=== PATIENT | male | born 1935 | race Caucasian/White ===

== ENCOUNTER 2017-12-05 11:42 | Observation (INO) ==
[2017-12-05 12:35] LABS: Basophils % 0.4 %; Eosinophils # 0.1 K/mcL (0.0-0.6); Eosinophils % 0.8 %; Hematocrit 45.1 % (37.5-50.1); Immature Granulocytes % 0.4 % (0-4); Lymphocytes # 1.1 K/mcL (0.6-4.6); Mean Corpuscular Hemoglobin 29.1 pg (28.0-33.3); Mean Corpuscular Volume 93.8 fL (83.0-100.0); Mean Platelet Volume 10.6 fL (9.4-12.4); Monocytes # 0.8 K/mcL (0.0-1.3); Monocytes % 8.5 %; Neutrophils # 7.1 K/mcL (1.6-8.9); Platelet Count 168 K/mcL (140-400); Red Blood Count 4.81 M/mcL (4.19-5.50); Red Cell Distribution Width 15.5 % (11.5-14.5); Segmented Neutrophils % 77.9 %
[2017-12-05 12:52] LABS: Prothrombin Time 11.8 Seconds (9.4-12.1)
[2017-12-05 12:55] LABS: Activated Partial Thrombo Time 28.3 Seconds (26.0-36.0)
[2017-12-05 12:57] LABS: BUN/Creatinine Ratio 16 (6-26); Blood Urea Nitrogen 20 mg/dL (8-23); Calcium 8.3 mg/dL (8.6-10.3); Carbon Dioxide 31 mEq/L (23-29); Chloride 109 mEq/L (98-107); Glucose 101 mg/dL (70-105); Osmolality,Calculated 303 (280-300); Potassium 3.6 mEq/L (3.5-5.1); Sodium 145 mEq/L (136-145); eGFR For Non-African Americans 56 (> 60)
[2017-12-05 12:59] LABS: Troponin I 0.06 ng/mL (< 0.04)
[2017-12-05] MEDS ORDERED: Furosemide 40 MG/4 ML VIAL IVP ONE (13:18)
--- NOTE | 2017-12-05 13:27 | Emergency Department Note ---
Disposition Clinical Impression: Peripheral edema, Orthopnea, Shortness of breath, Atrial fibrillation Disposition: Admitted As Inpatient Condition: Fair Referrals: Howard Nuno DO [Primary Care Provider] - Forms: ED Satisfaction Letter Time of Disposition: 13:49 General Adult HPI - General Chief complaint: ED Arrhythmia/Palpitations Stated complaint: Retaining Fluids From [facility] Time Seen by Provider: 12/05/17 11:50 Source: patient Mode of arrival: ambulatory Limitations: no limitations Nursing Notes Reviewed: Yes Vital Signs Reviewed: Yes - History of Present Illness HPI Narrative: Patient presents emergency room at the request of his primary care provider for evaluation of shortness of breath and increased leg swelling and atrial fibrillation. Patient is also had urinary related issues with inability to control his urination. Family is with him and denies any falls trauma or injury. Patient has progressively been getting worse over the last several weeks. Denies any other complaints or symptoms at this time. Onset (ago): day(s) Location: lower extremity Radiation: non-radiation Pain Severity: mild Pain Scale: 0 Consistency: constant Improves with: rest Worsens with: movement Associated symptoms: Reports: denies other symptoms Treatments Prior to Arrival: none - Related Data Home Medications Medication Instructions Recorded Confirmed Amiodarone [Cordarone] 200 mg PO DAILY 07/01/15 12/05/17 Terazosin [Hytrin] 5 mg PO DAILY 11/25/17 12/05/17 Aspirin Enteric Coated [Aspirin EC] 81 mg PO DAILY 12/05/17 12/05/17 Atorvastatin [Lipitor] 40 mg PO HS 12/05/17 12/05/17 Metoprolol Succinate [Toprol Xl] 50 mg PO DAILY 12/05/17 12/05/17 Nitroglycerin [Nitrostat] 1 tab PO Q5MIN PRN 12/05/17 12/05/17 Allergies Allergy/AdvReac Type Severity Reaction Status Date / Time No Known Allergies Allergy Verified 07/26/17 12:16 All systems ED: reviewed and negative except as stated. Review of Systems: As Per HPI Constitutional: Reports: weakness, weight change. Denies: fever, chills ENT ED: Denies: ear pain, throat pain Cardiovascular: Reports: dyspnea on exertion, orthopnea, edema. Denies: chest pain, palpitations Respiratory: Reports: dyspnea. Denies: cough, wheezes Gastrointestinal: Denies: abdominal pain, nausea, vomiting, diarrhea Genitourinary: Denies: urgency, dysuria, frequency Musculoskeletal: Denies: back pain, neck pain Neurological: Denies: headache Past Medical History - Past Medical History Attestation: Yes The following information was validated with the patient. Source: patient Medical history: Reports: coronary artery disease, hyperlipidemia, hypertension Psychiatric history: Reports: no psych history - Social History Smoking Status: Never smoker Smokeless Tobacco Status: No Alcohol use: Reports: none Drug use: Reports: none Physical Exam - General Limitations: no limitations General appearance: alert, in no apparent distress - Head Head exam: atraumatic, normocephalic, normal inspection - ENT ENT exam: normal exam, normal oropharynx, mucous membranes moist - Neck Neck exam: Present: normal inspection, full ROM, trachea midline. Absent: tenderness - Chest Chest inspection: Present: normal inspection, symmetric chest wall rise. Absent : tenderness - Respiratory Respiratory exam: Present: normal lung sounds bilaterally - Cardiovascular Cardiovascular exam: Present: regular rate, normal rhythm, normal heart sounds - Abdominal Exam Abdominal exam: Present: soft, Non-Tender, normal bowel sounds. Absent: tenderness, distention, guarding, rebound, rigidity - Extremities Exam Extremities exam: Present: normal inspection, full ROM, normal capillary refill , pedal edema. Absent: tenderness - Back Exam Back exam: Present: normal inspection, full ROM. Absent: tenderness, CVA tenderness (R), CVA tenderness (L) - Neurological Exam Neurological exam: Present: alert, oriented X3, CN II-XII intact, normal gait - Skin Skin exam: Present: warm, dry, intact, normal color Course Course Narrative: Patient seen and examined the time of arrival. See history of present illness. 82-year-old male presents emergency room at the request of his primary care provider Dr. Nuno. Patient was seen there today and had an evaluation completed with concern for shortness of breath, leg swelling, new onset A. fib and urinary incontinence. He is concerned about fluid overload and heart failure. Patient did have a 5 vessel bypass 17 years ago with no complications since then. He is currently denying chest pain fevers chills nausea vomiting or diarrhea. No headache or vision change. He does have some overflow incontinence of his urine but otherwise denies any burning with urination. Patient only has exertional dyspnea and wall resting in the bed in during conversation he does not appear to be in any apparent distress with no acute signs of shortness of breath. On physical exam his mucous membranes are moist his oropharynx is patent trachea is midline. Lungs are clear with no crackles. Heart is regular but has a normal rate. Abdomen is soft nontender nondistended with no guarding no rigidity and no peritoneal symptoms. There is no pulsatile masses or lesions noted. Patient deferred genitourinary examination initially. Bilateral lower extremities have significant pitting edema. Right lower extremity is larger than the left but this is a chronic issue secondary to the venous stripping is completed for his cardiac catheterization and bypass procedure. Patient will have detailed workup with CBC chemistry troponin and BNP urinalysis and chest x-ray to be completed here. Disposition will most likely be admission wants a full workup and treatment course have been established. We will continue to monitor here until symptomatically control is completed. Patient takes a baby aspirin daily. No other acute issues noted this time. - Reevaluation(s) Reevaluation #1: BNP is slightly elevated from baseline. His troponin is slightly elevated as well but no other acute etiology is noted. Chest x-ray still pending. EKG does not show any acute issues at this time. Patient does have atrial fibrillation but no acute signs of ST segment elevation or abnormality. Patient does have a remote history of atrial fibrillation that was spontaneously cardioverted with electrical stimulation. He has not had any issues with it since then. Single dose of IV Lasix to be provided here for diuresis and then reevaluation to be completed. Time: 13:47 Reevaluation #2: Patient is otherwise asymptomatic. He will be admitted for continuation of care what appears to be fluid overload orthopnea and exertional dyspnea. Hospitalist has been paged at this time. Lasix has been provided. Hospitalist Dr. Field was contacted no other recommendations or concerns were noted. Patient will be admitted for continuation of care and further evaluation for atrial fibrillation, generalized weakness,.. Time: 14:27 Vital Signs Temperature 98.7 F 12/05/17 11:49 Pulse Rate 93 12/05/17 11:49 Respiratory Rate 19 12/05/17 11:49 Blood Pressure 109/77 12/05/17 11:49 O2 Sat by Pulse Oximetry 95 12/05/17 11:49 Temperature 98.7 F 12/05/17 11:49 Pulse Rate 85 12/05/17 14:40 Respiratory Rate 18 12/05/17 14:40 Blood Pressure 128/89 12/05/17 14:40 O2 Sat by Pulse Oximetry 98 12/05/17 14:40 Oxygen Delivery Oxygen Delivery Room Air Medical Decision Making - MDM Narrative Medical decision making narrative: Exertional dyspnea, pitting edema, fluid overload - Medical Records Medical records reviewed: Yes I reviewed the patient's medical records. - Lab Data Lab results reviewed: Yes I reviewed the patient's lab results. Result diagrams: 12/05/17 12:22 12/05/17 12:22 Lab Results 12/05/17 12/05/17 12/05/17 Range/Units 12:22 12:22 12:22 WBC 9.1 (4.3-11.1) K/mcL RBC 4.81 (4.19-5.50) M/mcL Hgb 14.0 (12.9-16.9) g/dL Hct 45.1 (37.5-50.1) % MCV 93.8 (83.0-100.0) fL MCH 29.1 (28.0-33.3) pg MCHC 31.0 L (31.6-35.5) g/dL RDW 15.5 H (11.5-14.5) % Plt Count 168 (140-400) K/mcL MPV 10.6 (9.4-12.4) fL Immature Gran % 0.4 (0-4) % Seg Neutrophils % 77.9 % Lymphocytes % 12.0 % Monocytes % 8.5 % Eosinophils % 0.8 % Basophils % 0.4 % Neutrophils # 7.1 (1.6-8.9) K/mcL Lymphocytes # 1.1 (0.6-4.6) K/mcL Monocytes # 0.8 (0.0-1.3) K/mcL Eosinophils # 0.1 (0.0-0.6) K/mcL Basophils # 0.0 (0.0-0.2) K/mcL PT (9.4-12.1) Seconds INR APTT (26.0-36.0) Seconds Sodium 145 (136-145) mEq/L Potassium 3.6 (3.5-5.1) mEq/L Chloride 109 H (98-107) mEq/L Carbon Dioxide 31 H (23-29) mEq/L BUN 20 (8-23) mg/dL Creatinine 1.24 (0.70-1.30) mg/dL Est GFR ( Amer) > 60 (> 60) Est GFR (Non-Af Amer) 56 L (> 60) BUN/Creatinine Ratio 16 (6-26) Glucose 101 (70-105) mg/dL Calculated Osmolality 303 H (280-300) Lactic Acid 1.4 (0.5-2.2) mmol/L Calcium 8.3 L (8.6-10.3) mg/dL Troponin I 0.06 H* (< 0.04) ng/mL B-Natriuretic Peptide (Less than 100) pg/mL TSH 1.837 (0.340-5.600) mcIU/mL 12/05/17 12/05/17 Range/Units 12:22 12:22 WBC (4.3-11.1) K/mcL RBC (4.19-5.50) M/mcL Hgb (12.9-16.9) g/dL Hct (37.5-50.1) % MCV (83.0-100.0) fL MCH (28.0-33.3) pg MCHC (31.6-35.5) g/dL RDW (11.5-14.5) % Plt Count (140-400) K/mcL MPV (9.4-12.4) fL Immature Gran % (0-4) % Seg Neutrophils % % Lymphocytes % % Monocytes % % Eosinophils % % Basophils % % Neutrophils # (1.6-8.9) K/mcL Lymphocytes # (0.6-4.6) K/mcL Monocytes # (0.0-1.3) K/mcL Eosinophils # (0.0-0.6) K/mcL Basophils # (0.0-0.2) K/mcL PT 11.8 (9.4-12.1) Seconds INR 1.0 APTT 28.3 (26.0-36.0) Seconds Sodium (136-145) mEq/L Potassium (3.5-5.1) mEq/L Chloride (98-107) mEq/L Carbon Dioxide (23-29) mEq/L BUN (8-23) mg/dL Creatinine (0.70-1.30) mg/dL Est GFR ( Amer) (> 60) Est GFR (Non-Af Amer) (> 60) BUN/Creatinine Ratio (6-26) Glucose (70-105) mg/dL Calculated Osmolality (280-300) Lactic Acid (0.5-2.2) mmol/L Calcium (8.6-10.3) mg/dL Troponin I (< 0.04) ng/mL B-Natriuretic Peptide 466 H (Less than 100) pg/mL TSH (0.340-5.600) mcIU/mL - Radiology Data Radiology results reviewed: Yes I reviewed the patient's radiology results. Chest x-ray is unremarkable this time. Stable left-sided pleural effusion with normal cardiac silhouette in comparison to previous. Is enlargement otherwise unchanged - EKG Data EKG #1 EKG attestation: Yes I reviewed and interpreted this EKG. EKG results narrative: EKG shows atrial fibrillation with no acute signs of rapid ventricular response. QTC is 440. QTC of 508 based on the calculation. The EKG appears to be stable no acute signs of ST segment elevation or abnormality. Chronic findings noted. [place] is normal.
[2017-12-05] MEDS ORDERED: Aspirin 81 MG TAB.CHEW PO STA (13:50)
[2017-12-05 14:07] LABS: Thyroid Stimulating Hormone 1.837 mcIU/mL (0.340-5.600)
[2017-12-05] MEDS ORDERED: Naloxone 0.4 MG/ML INJ IVP PRN (16:02)
[2017-12-05] MEDS ORDERED: traMADol 50 MG TABLET PO PRN (16:02)
--- NOTE | 2017-12-05 17:39 | Internal Med History&Physical ---
Date of Encounter: 12/05/17 Time of Encounter: 17:35 Internal Medicine - H&P: HPI Chief complaint: Shortness of breath plus generalized weakness. Admitted From: Home Plans for Post Hospital Care: Home History of present illness: Mr. Bales is a 82 year old male past medical history significant for hypertension, HFpEF,and coronary artery bypass grafting 2001. Patient was sent to the emergency room from his primary care physician's office where he went due to generalized weakness associated with swelling of his lower extremities for the past 2 months. Patient reports that over the past 2 months he feels that his lower extremities have gotten significantly swollen, and that he is becoming short of breath with minimal exertion. He also reports that he feels that his abdominal pain has increased during this period of time. Patient also recalls that for the past 2 months his strength has declined and that he has had multiple falls at home because his legs have just "give up" and he has fall to the ground, but he denies hitting his head or having any major trauma from the fall. Denies chest pain, fever, chills, nausea, vomiting or diarrhea. 2 pillow orthopnea. Past Med Surg Social Fam HX - Past Medical History Medical history: coronary artery disease, hyperlipidemia, hypertension Additional medical history: CORONARY BYBASS. prostate issues Psychiatric history: no psych history - Past Surgical History Additional surgical history: CORONARY BYPASS (5-way) - Social History Smoking Status: Never smoker Smokeless Tobacco Status: No Alcohol use: none Drug use: none Internal Medicine - H&P: Meds Amiodarone [Cordarone] 200 mg PO DAILY 07/01/15 [History] Terazosin [Hytrin] 5 mg PO DAILY 11/25/17 [History] Aspirin Enteric Coated [Aspirin EC] 81 mg PO DAILY 12/05/17 [History] Atorvastatin [Lipitor] 40 mg PO HS 12/05/17 [History] Metoprolol Succinate [Toprol Xl] 50 mg PO DAILY 12/05/17 [History] Nitroglycerin [Nitrostat] 1 tab PO Q5MIN PRN 12/05/17 [History] 3 Allergy/AdvReac Type Severity Reaction Status Date / Time No Known Allergies Allergy Verified 07/26/17 12:16 All Systems PM: A 10-system review of systems was performed and is negative for pertinent findings except as documented above in the HPI. - Constitutional Constitutional: falls, weakness, no anorexia, no chills, no lethargy - EENT Eyes: no change in vision, no decreased night vision, no floaters, no photophobia Ears: no decreased hearing Nose, mouth and throat: no dental pain, no dysphagia, no mouth pain, no nasal congestion - Cardiovascular Cardiovascular ROS IM: dyspnea on exertion, edema, no claudication, no irregular heart rhythm, no lightheadedness, no orthopnea, no palpitations, no paroxysmal nocturnal dyspnea, no syncope - Respiratory Respiratory: no cough, no dyspnea, no wheezing, no snoring - Gastrointestinal Gastrointestinal: no dysphagia, no melena, no nausea, no vomiting - Genitourinary Genitourinary ROS male: no dysuria, no nocturia - Musculoskeletal Musculoskeletal ROS IM: no arthralgias, no atrophy, no back pain - Integumentary Integumentary IM: no erythema - Neurological Neurological ROS: no confusion, no dizziness, no restless legs, no vertigo, no weakness - Psychiatric Psychiatric: no hopelessness - Endocrine Endocrine IM: no fatigue - Allergic/Immunologic Allergic/Immunologic: no wheezing - Constitutional Vitals: Temp Pulse Resp BP Pulse Ox 98.8 F 92 16 125/93 95 12/05/17 16:49 12/05/17 16:49 12/05/17 16:49 12/05/17 16:49 12/05/17 16:49 Exam: General: Alert and oriented x4. In no acute distress. Skin: Normal color, no rash, no lesions. HEENT: EOM, pupils equal, round and reactive. Cardiovascular:RRR, Normal S1 & S2, no rubs, murmurs or gallops. JVD about 6cm. Lungs: Clear breath sounds to auscultation bilaterally, no wheezes or crackles. Abdomen: Obese, Soft, non-tender, no rigidity. NABS in all 4 quadrants Extremities: +2 pitting edema in the lower extr, R>L, no joint swelling or clubbing. Neurological: Normal cognition and motor skills. CN II-XII intact. Rest of the physical exam is non contributory Internal Med - H&P Results - Labs CBC & Chem 7: 12/05/17 12:22 12/05/17 12:22 - Assessment and plan (1) Congestive heart failure Current Visit: Yes Status: Chronic Assessment and plan: 2D echo done 06/18/17 Impressions: LVEF 55%. Normal LV chamber size and function. Asymmetric hypertrophy of the basal septum. Moderate left ventricular diastolic dysfunction. Atypical septal motion consistent with post-operative status. Normal right ventricular structure and function. Mild aortic stenosis. Mean gradient 12 mmHg. Mild mitral regurgitation. No evidence of pulmonary hypertension. Plan Will repeat TTE Fluid restriction to 1.5 litters a day daily weights Strict intake and output Started on furosemide 40mg/IV BID 2 gram sodium diet. Will continue metoprolol, home dose. Qualifiers: Heart failure type: diastolic Heart failure chronicity: chronic Qualified Code(s): I50.32 - Chronic diastolic (congestive) heart failure (2) Weakness Current Visit: Yes Status: Acute Assessment and plan: Daily PT/OT. LFTs. (3) Atrial fibrillation Current Visit: Yes Status: Acute Assessment and plan: Patient with a Hx of A.fib as per chart rate controlled. ON metoprolol and Amiodarone. Will continue home medications. Will check TSH. No anticoagulation due to falls. Qualifiers: Atrial fibrillation type: chronic Qualified Code(s): I48.2 - Chronic atrial fibrillation (4) Shortness of breath Current Visit: Yes Status: Acute Assessment and plan: Possible due to acute HPpEF exacerbation. Plan of care as Problem #1. (5) DVT prophylaxis Current Visit: Yes Status: Acute Assessment and plan: Started on Heparin 5000 units BID for DVT prophylaxis. (6) Elevated troponin Current Visit: Yes Status: Acute Assessment and plan: Possible demand ischemia. NO EKG changes, no chest pain. Serial trops, will consider Cardiology evaluation. (7) CAD (coronary artery disease) Current Visit: Yes Status: Acute Assessment and plan: Hx of CABG in 2001. patient on Aspirin and Atorvastatin. Qualifiers: Coronary Disease-Associated Artery/Lesion type: unspecified vessel or lesion type [place] vs. transplanted heart: unspecified whether [place] or transplanted heart Associated angina: angina presence unspecified Qualified Code(s): I25.10 - Atherosclerotic heart disease of [place] coronary artery without angina pectoris - Time Spent With Patient Total time spent is greater than 50% in coordination of care (as documented) at patient's floor/unit and/or counseling patient: 25 - 35 minutes
[2017-12-05] MEDS: Metoprolol XL (24 HR) Succ 25 MG TAB.ER.24H PO SCH (18:02)
[2017-12-05] MEDS: *HR* Heparin 5,000 UNIT/ML VIAL SQ SCH (18:02)
[2017-12-05] MEDS: Furosemide 40 MG/4 ML VIAL IVP SCH (21:42)
[2017-12-06 03:41] LABS: Hematocrit 45.8 % (37.5-50.1); Hemoglobin 14.1 g/dL (12.9-16.9); Mean Corpuscular HGB Conc 30.8 g/dL (31.6-35.5); Mean Corpuscular Hemoglobin 28.5 pg (28.0-33.3); Mean Corpuscular Volume 92.5 fL (83.0-100.0); Mean Platelet Volume 10.9 fL (9.4-12.4); Platelet Count 188 K/mcL (140-400); Red Blood Count 4.95 M/mcL (4.19-5.50); Red Cell Distribution Width 15.5 % (11.5-14.5)
[2017-12-06 03:56] LABS: Albumin 3.2 g/dL (3.5-5.7); Albumin/Globulin Ratio 1.5 (1.1-2.2); Bilirubin,Direct 0.2 mg/dL (0.0-0.2); Bilirubin,Indirect 0.6 mg/dL (0.0-1.2); Bilirubin,Total 0.8 mg/dL (0.3-1.0); Globulin 2.1 g/dL (2.4-3.5); Phosphorous 3.4 mg/dL (2.7-4.5); Total Protein 5.3 g/dL (6.4-8.9)
[2017-12-06] MEDS: *HR* Heparin 5,000 UNIT/ML VIAL SQ SCH (06:04)
[2017-12-06] MEDS: *HR* Amiodarone 200 MG TABLET PO SCH (08:05)
[2017-12-06] MEDS: Aspirin Enteric Coated 81 MG Tablet PO SCH (08:06)
[2017-12-06] MEDS: Metoprolol XL (24 HR) Succ 25 MG TAB.ER.24H PO SCH (08:06)
[2017-12-06] MEDS: Furosemide 40 MG/4 ML VIAL IVP SCH ×2 (08:06→17:06)
[2017-12-06 08:44] LABS: BUN/Creatinine Ratio 12 (6-26); Blood Urea Nitrogen 15 mg/dL (8-23); Calcium 8.3 mg/dL (8.6-10.3); Carbon Dioxide 36 mEq/L (23-29); Chloride 105 mEq/L (98-107); Glucose 95 mg/dL (70-105); Osmolality,Calculated 301 (280-300); Phosphorous 3.3 mg/dL (2.7-4.5); Potassium 3.5 mEq/L (3.5-5.1); Sodium 145 mEq/L (136-145); eGFR For Non-African Americans 58 (> 60)
[2017-12-06] MEDS ORDERED: Furosemide 40 MG/4 ML VIAL IVP SCH (09:00)
[2017-12-06] MEDS ORDERED: Aspirin 81 MG TAB.CHEW PO SCH (09:00)
--- NOTE | 2017-12-06 09:00 | Electrocardiograph Report ---
[facility] [employer] Test Date: 2017-12-05 Pat Name: Duke Bales Department: [id number] Room: 2A34 Gender: M Certified Diabetes Educator: : 1935 Requested By: Jose Webster Order Number: [id number] Reading MD: Mike Cohn Measurements Intervals [place] Rate: 80 P: [place]: QRS: 34 QRSD: 99 T: 2 QT: 440 QTc: 508 Interpretive Statements Age not entered, assumed to be 52 years old for purpose of ECG interpretation Atrial fibrillation Probable inferior infarct, age indeterminate Prolonged QT interval Electronically Signed On 12-06-2017 8:58:32 EDT by Mike Cohn
--- NOTE | 2017-12-06 10:07 | Cardiology Consult Note ---
Date of Encounter: 12/06/17 Time of Encounter: 10:05 Assessment and Plan (1) Congestive heart failure Current Visit: Yes Status: Chronic Presents with 2 months progressive dyspnea, LE edema, weakness. BNP 466. CXR small left pleural effusion improved from 08/15. Fluid overload on exam, 2+ BLE edema. Documented hx of diastolic CHF. TTE 06/2017 EF preserved with moderate LVDD. Agree with IV diuresis. IV Lasix 40mg BID. Recommend strict I/Os, Na and fluid restriction, daily weights. Continue to follow. Recheck TTE to evaluate EF. Qualifiers: Heart failure type: diastolic Heart failure chronicity: acute on chronic Qualified Code(s): I50.33 - Acute on chronic diastolic (congestive) heart failure (2) Atrial fibrillation Current Visit: Yes Status: Chronic Hx PAF on Amiodarone 200mg daily. Had successful DCCV 07/2016 and has been on amiodarone since that time and was maintaining SR. Previous ECGs show SR, but admission ECG shows A-Fib rate 80. Pt denies palpitations. Telemetry rate controlled AF. [id number] (Age, HTN, CAD). High CVA risk. However, reports frequent falls recently--approximately once every 2 weeks due to weakness. Discussed with Dr. Montgomery, will place on therapeutic Lovenox for now for inpt anticoagulation. MCFP AC will need to be determined prior to d/c. Discussed with Dr. Montgomery. Continue amiodarone for now. Continue BB. Qualifiers: Atrial fibrillation type: paroxysmal Qualified Code(s): I48.0 - Paroxysmal atrial fibrillation (3) Elevated troponin Current Visit: Yes Status: Acute Troponins 0.06, 0.05, 0.06 x 2. Suspect demand ischemia in setting of (4) CAD (coronary artery disease) Current Visit: Yes Status: Acute Hx CABG 2001. Denies CP. Continue ASA, Statin, BB. Qualifiers: Coronary Disease-Associated Artery/Lesion type: unspecified vessel or lesion type [place] vs. transplanted heart: unspecified whether [place] or transplanted heart Associated angina: angina presence unspecified Qualified Code(s): I25.10 - Atherosclerotic heart disease of [place] coronary artery without angina pectoris Discussion w patient/family: The assessment and plan as outlined above was discussed with the patient and/or family members who expressed understanding and agreement. All questions were answered. Thank you for involving us in the care of your patient. Please call with any questions. I will discuss all the above with Dr. Montgomery and make changes as necessary. History of Present Illness Consult date: 12/06/17 Consult reason: Elevated troponin Chief complaint: weakness, falls, dyspnea, LE edema History of present illness: Mr. Bales is a 82 year old male with PMH of hypertension, HFpEF, CAD s/p CABG in 2001, PAF hx DCCV 07/2006, on amiodarone. Pt was sent to the ED from his primary care PCP where he went due to generalized weakness associated with swelling of his lower extremities for the past 2 months associated with shortness of breath with minimal exertion. Reports generalized weakness and that he has had multiple falls at home because his legs have just "give up". Reports approximately 1 fall every 2 weeks. BNP 466. Troponins 0.06, 0.05, 0.06 , 0.06. Cardiology consulted for further recs. CXR Persistent left base atelectasis and small left pleural effusion, improved compared to exam of August 15, 2017. Prior CV testing: TTE 06/21/17: LVEF 55%. Normal LV chamber size and function. Asymmetric hypertrophy of the basal septum. Moderate LVDD. Atypical septal motion consistent with post-operative status. Normal right ventricular structure and function. Mild aortic stenosis. Mean gradient 12 mmHg. Mild mitral regurgitation. No evidence of pulmonary hypertension. Past Med Surg Social Fam HX - Past Medical History Medical history: atrial fibrillation, coronary artery disease, hyperlipidemia, hypertension Additional medical history: CORONARY BYBASS. prostate issues Psychiatric history: no psych history - Past Surgical History Additional surgical history: CORONARY BYPASS (5-way) - Social History Smoking Status: Never smoker Smokeless Tobacco Status: No Alcohol use: none Drug use: none Medications and Allergies Amiodarone [Cordarone] 200 mg PO DAILY 07/01/15 [History] Terazosin [Hytrin] 5 mg PO DAILY 11/25/17 [History] Aspirin Enteric Coated [Aspirin EC] 81 mg PO DAILY 12/05/17 [History] Atorvastatin [Lipitor] 40 mg PO HS 12/05/17 [History] Metoprolol Succinate [Toprol Xl] 50 mg PO DAILY 12/05/17 [History] Nitroglycerin [Nitrostat] 1 tab PO Q5MIN PRN 12/05/17 [History] 3 Allergy/AdvReac Type Severity Reaction Status Date / Time No Known Allergies Allergy Verified 07/26/17 12:16 All Systems Review: The remainder of the systems were reviewed and are negative - Constitutional Constitutional: frequent falls, weakness - Cardiovascular Cardiovascular: as per HPI, dyspnea at rest, dyspnea on exertion, leg edema - Respiratory Respiratory: dyspnea Physical Examination Vital Signs, Last 4 Hours Temp Pulse Resp BP Pulse Ox 12/06/17 07:25 98 F 85 18 142/90 92 Vital Signs Temp Pulse Resp BP Pulse Ox 12/06/17 07:25 98 F 85 18 142/90 92 12/06/17 04:29 98.2 F 81 17 132/88 95 12/05/17 23:52 98 F 84 17 135/82 94 12/05/17 19:06 97.7 F 103 17 150/102 94 12/05/17 18:21 98.8 F 92 16 125/93 95 12/05/17 18:01 95 12/05/17 16:49 98.8 F 92 16 125/93 95 12/05/17 16:30 81 97 12/05/17 16:10 98.7 F 85 18 128/89 98 12/05/17 14:40 85 18 128/89 98 12/05/17 13:26 93 18 135/87 97 12/05/17 12:20 88 18 123/82 96 12/05/17 12:06 97 12/05/17 11:49 98.7 F 93 19 109/77 95 Intake and Output 12/05/17 12/06/17 12/06/17 23:59 07:59 15:59 Output Total 0 / 0 600 / 600 Balance 0 / 0 -600 / -600 Output: Urine 0 / 0 600 / 600 Other: Weight 102.7 kg General: Conversant, No Apparent Distress HEENT: Atraumatic, Normocephaly, Mucus Membranes Moist Neck: Normal carotid pulses Cardiac: Other (irregularly irregular) Lungs: Other (diminished) Neuro: Alert and responsive, No focal deficits noted Abdomen: Soft, Non-Tender Skin: No rashes noted on visualized skin Musculoskeletal: No Chest Wall Tenderness Extremities: Other (2+ BLE edema) Results 12/06/17 03:06 12/06/17 07:57 Lab Results 12/05/17 12/05/17 12/05/17 17:06 17:06 22:10 WBC Hgb Hct Plt Count D-Dimer 852 H Sodium Potassium Chloride Carbon Dioxide BUN Creatinine Glucose Calcium Magnesium Total Bilirubin AST ALT Alkaline Phosphatase Troponin I 0.05 H* 0.06 H* 12/06/17 12/06/17 12/06/17 03:06 03:06 03:06 WBC 7.2 Hgb 14.1 Hct 45.8 Plt Count 188 D-Dimer Sodium Potassium Chloride Carbon Dioxide BUN Creatinine Glucose Calcium Magnesium 2.0 Total Bilirubin AST ALT Alkaline Phosphatase Troponin I 0.06 H* 12/06/17 12/06/17 03:06 07:57 WBC Hgb Hct Plt Count D-Dimer Sodium 145 Potassium 3.5 Chloride 105 Carbon Dioxide 36 H BUN 15 Creatinine 1.21 Glucose 95 Calcium 8.3 L Magnesium 2.0 Total Bilirubin 0.8 AST 25 ALT 28 Alkaline Phosphatase 80 Troponin I Short CBC 12/06/17 12/05/17 Range/Units 03:06 12:22 WBC 7.2 9.1 (4.3-11.1) K/mcL Hgb 14.1 14.0 (12.9-16.9) g/dL Hct 45.8 45.1 (37.5-50.1) % Plt Count 188 168 (140-400) K/mcL Neutrophils # 7.1 (1.6-8.9) K/mcL BMP 12/06/17 12/05/17 Range/Units 07:57 12:22 Sodium 145 145 (136-145) mEq/L Potassium 3.5 3.6 (3.5-5.1) mEq/L Chloride 105 109 H (98-107) mEq/L Carbon Dioxide 36 H 31 H (23-29) mEq/L BUN 15 20 (8-23) mg/dL Creatinine 1.21 1.24 (0.70-1.30) mg/dL Glucose 95 101 (70-105) mg/dL Calcium 8.3 L 8.3 L (8.6-10.3) mg/dL Cardiac Enzymes 12/06/17 12/05/17 12/05/17 Range/Units 03:06 22:10 17:06 Troponin I 0.06 H* 0.06 H* 0.05 H* (< 0.04) ng/mL 12/05/17 Range/Units 12:22 Troponin I 0.06 H* (< 0.04) ng/mL Liver Function 12/06/17 Range/Units 03:06 Total Bilirubin 0.8 (0.3-1.0) mg/dL Direct Bilirubin 0.2 (0.0-0.2) mg/dL AST 25 (13-39) Units/L ALT 28 (7-52) Units/L Alkaline Phosphatase 80 (34-104) Units/L Albumin 3.2 L (3.5-5.7) g/dL Impressions Chest X-Ray 12/05/17 11:55 IMPRESSION: 1. Persistent left base atelectasis and small left pleural effusion, improved compared to exam of August 15, 2017. 2. Stable mild enlargement of the cardiac silhouette. D/ / Ulises Graves MD / Ulises Graves MD Interpreting Provider: Ulises Graves MD Active Medications Amiodarone HCl (Cordarone) 200 mg PO DAILY JOHN Stop: 06/07/18 09:01 Last Admin: 12/06/17 08:05 Dose: 200 mg Aspirin (Aspirin Ec) 81 mg PO DAILY JOHN Stop: 06/07/18 09:01 Last Admin: 12/06/17 08:06 Dose: 81 mg Atorvastatin Calcium (Lipitor) 40 mg PO HS JOHN Stop: 06/06/18 21:01 Last Admin: 12/05/17 21:42 Dose: 40 mg Furosemide (Lasix) 40 mg IVP BIDDIURETIC JOHN Stop: 06/06/18 21:01 Last Admin: 12/06/17 08:06 Dose: 40 mg Heparin Sodium (Porcine) (Heparin) 5,000 unit SQ Q12HCO JOHN Stop: 06/06/18 18:01 Last Admin: 12/06/17 06:04 Dose: 5,000 unit Metoprolol Succinate (Toprol Xl) 12.5 mg PO DAILY JOHN Stop: 06/06/18 17:31 Last Admin: 12/06/17 08:06 Dose: 12.5 mg Naloxone HCl (Narcan) 0.4 mg IVP Q2MIN PRN PRN Reason: SEE COMMENTS Stop: 06/06/18 16:03 Tramadol HCl (Ultram) 50 mg PO Q6HR PRN PRN Reason: Moderate Pain Stop: 06/06/18 16:03 - Imaging and Cardiology Echo: report reviewed - EKG Interpretation EKG results cardiology: personally reviewed (A-Fib, rate 80), other (12 hr tele AVG HR 85, A-Fib) Consult Discharge Plan - Plan Referrals: Howard Nuno DO [Primary Care Provider] -
--- NOTE | 2017-12-06 13:56 | Internal Med Progress Note ---
Hospitalist Progress Note - Encounter Date of Encounter: 12/06/17 Time of Encounter: 13:52 - Subjective Interval History: Patient seen and evaluated at bedside. Denies chest pain or shortness of breath , denies weakness. but reports not eating properly because he does not like the food. denies abd pain, nausea or vomiting. - Exam Vitals: Temp Pulse Resp BP Pulse Ox 98 F 85 18 142/90 92 12/06/17 07:25 12/06/17 07:25 12/06/17 07:25 12/06/17 07:25 12/06/17 07:25 Exam: General: Alert and oriented x4. In no acute distress. Cardiovascular: RRR, Normal S1 & S2, no rubs, murmurs or gallops. JVD about 6cm. Lungs: Clear breath sounds to auscultation bilaterally, no wheezes or crackles. Abdomen: Obese, Soft, non-tender, no rigidity. NABS in all 4 quadrants Extremities: +2 pitting edema in the lower extr, R>L, no joint swelling or clubbing. Neurological: Normal cognition. CN II-XII intact. Rest of the physical exam is non contributory - Assessment and Plan (1) Congestive heart failure Current Visit: Yes Status: Chronic Assessment and Plan: -ve 600 mls of fluid in the past 24 hours. Plan: To continue gentle IV diruresis with furosemide 40mg/IV BID strict intake and output water restriction to 1.5 litters a day. daily weight 2 gram sodium diet will continue to follow cardiology recommendations Continue low dose beta-miley F/U finale TTE report. (2) Weakness Current Visit: Yes Status: Acute Assessment and Plan: PT/OT has been consulted. (3) Atrial fibrillation Current Visit: Yes Status: Chronic Assessment and Plan: Rate controlled. Plan Patient on Amiodarone and metoprolol. 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 (4) Elevated troponin Current Visit: Yes Status: Acute Assessment and Plan: Most likely due to demand. No Intervention needed as per cardiology evaluation. (5) CAD (coronary artery disease) Current Visit: Yes Status: Acute Assessment and Plan: Continue aspirin and atorvastatin. DVT Prophylaxis: Full dose anticoagulation, due to A. fib. - Summary of Assessment and Plan Summary of Assessment and Plan: Patient to remain in the hospital for continued IV diuresis. - Time Spent with Patient Total time spent is greater than 50% in coordination of care (as documented) at patient's floor/unit and/or counseling patient: 25 - 35 minutes Plan of Care Discussed with: patient (the nurse.) Internal Medicine: Result - Labs CBC & Chem 7: 12/06/17 03:06 12/06/17 07:57 Labs: Short CBC 12/06/17 Range/Units 03:06 WBC 7.2 (4.3-11.1) K/mcL Hgb 14.1 (12.9-16.9) g/dL Hct 45.8 (37.5-50.1) % Plt Count 188 (140-400) K/mcL BMP 12/06/17 07:57 Sodium 145 Potassium 3.5 Chloride 105 Carbon Dioxide 36 H BUN 15 Creatinine 1.21 Glucose 95 Calcium 8.3 L Cardiac Enzymes 12/05/17 12/05/17 12/06/17 Range/Units 17:06 22:10 03:06 Troponin I 0.05 H* 0.06 H* 0.06 H* (< 0.04) ng/mL Liver Function 12/06/17 Range/Units 03:06 Total Bilirubin 0.8 (0.3-1.0) mg/dL Direct Bilirubin 0.2 (0.0-0.2) mg/dL AST 25 (13-39) Units/L ALT 28 (7-52) Units/L Alkaline Phosphatase 80 (34-104) Units/L Albumin 3.2 L (3.5-5.7) g/dL - ABG Interpretation ABG results: PT/INR, D-dimer PT 11.8 Seconds (9.4-12.1) 12/05/17 12:22 D-Dimer 852 ng/mLFEU (0-500) H 12/05/17 17:06 - Impressions Impressions Echocardiogram 12/05/17 17:34 Impressions: Technically sub-optimal due to poor echocardiographic windows. LVEF 50%. Normal LV chamber size and function. Mild asymmetric hypertrophy of the basal septum. Indeterminate diastolic function. Atypical septal motion consistent with post-operative status. Normal right ventricular size. Mild right ventricular hypokinesis. Aortic valve not well visualized. Grossly, calcified aortic valve leaflets. Mild aortic stenosis. Mean gradient 10 mmHg. Mild pulmonary hypertension. Left Ventricular Wall Motion: Rest Echo Findings All wall segments showed normal motion. Findings: Study Quality * Technically sub-optimal due to poor echocardiographic windows. ECG Findings * Atrial fibrillation. Left Ventricle * LVEF 50%. * Normal LV chamber size and function. * Mild asymmetric hypertrophy of the basal septum. * Indeterminate diastolic function. * Atypical septal motion consistent with post-operative status. Right Ventricle * Normal right ventricular size. Mild right ventricular hypokinesis. Left Atrium * Mildly dilated left atrium. Right Atrium * Mildly dilated right atrium. Aortic Valve * Aortic valve not well visualized. * Grossly, calcified aortic valve leaflets. * Trace aortic regurgitation. * Mild aortic stenosis. Mean gradient 10 mmHg. Mitral Valve * Mild mitral annular calcification. * Trace mitral regurgitation. * No mitral stenosis. Tricuspid Valve * Normal tricuspid valve structure and function. * Trace tricuspid regurgitation. * Mild pulmonary hypertension. Pulmonic Valve * Normal pulmonic valve structure and function. * Trace pulmonic regurgitation. Aorta * Normally sized aortic root. Pericardium * The pericardium appears normal. IVC * The IVC is not well evaluated. Pulmonary Artery * Pulmonary artery not well visualized. Consult Discharge Plan - Plan Referrals: Howard Nuno DO [Primary Care Provider] - (1) Congestive heart failure Qualifiers: Heart failure type: diastolic Heart failure chronicity: acute on chronic Qualified Code(s): I50.33 - Acute on chronic diastolic (congestive) heart failure (3) Atrial fibrillation Qualifiers: Atrial fibrillation type: paroxysmal Qualified Code(s): I48.0 - Paroxysmal atrial fibrillation (5) CAD (coronary artery disease) Qualifiers: Coronary Disease-Associated Artery/Lesion type: unspecified vessel or lesion type [place] vs. transplanted heart: unspecified whether [place] or transplanted heart Associated angina: angina presence unspecified Qualified Code(s): I25.10 - Atherosclerotic heart disease of [place] coronary artery without angina pectoris
[2017-12-06] MEDS: *HR* Enoxaparin 100 MG/ML SYRINGE SQ SCH (17:06)
[2017-12-07 04:48] LABS: BUN/Creatinine Ratio 12 (6-26); Blood Urea Nitrogen 13 mg/dL (8-23); Calcium 8.4 mg/dL (8.6-10.3); Carbon Dioxide 33 mEq/L (23-29); Chloride 103 mEq/L (98-107); Glucose 93 mg/dL (70-105); Osmolality,Calculated 298 (280-300); Phosphorous 3.3 mg/dL (2.7-4.5); Potassium 3.3 mEq/L (3.5-5.1); Sodium 144 mEq/L (136-145); eGFR For Non-African Americans > 60 (> 60)
[2017-12-07] MEDS: *HR* Enoxaparin 100 MG/ML SYRINGE SQ SCH ×2 (06:04→17:30)
[2017-12-07] MEDS: Metoprolol XL (24 HR) Succ 25 MG TAB.ER.24H PO SCH (08:05)
[2017-12-07] MEDS: Aspirin Enteric Coated 81 MG Tablet PO SCH (08:05)
[2017-12-07] MEDS: Furosemide 40 MG/4 ML VIAL IVP SCH ×2 (08:05→17:30)
[2017-12-07] MEDS: *HR* Amiodarone 200 MG TABLET PO SCH (08:05)
--- NOTE | 2017-12-07 10:56 | Internal Med Progress Note ---
Hospitalist Progress Note - Encounter Date of Encounter: 12/07/17 Time of Encounter: 10:54 - Subjective Interval History: Seen and evaluated at bedside, patient in bed laying flat, in no acute distress. Denies shortness of breath or weakness. Also denies chest pain. No nausea or vomiting. - Exam Vitals: Temp Pulse Resp BP Pulse Ox 97.8 F 96 17 142/98 96 12/07/17 07:17 12/07/17 07:17 12/07/17 07:17 12/07/17 07:17 12/07/17 07:17 Exam: General: Alert and oriented x4. In no acute distress. Cardiovascular: Irregularly irregular, Normal S1 & S2, no rubs, murmurs or gallops. Lungs: CTA bilaterally, no wheezes or crackles. Abdomen: Obese, Soft, non-tender, no rigidity. NABS in all 4 quadrants Extremities: +2 pitting edema in the lower extr, R>L, no joint swelling or clubbing. Neurological: Normal cognition. CN II-XII intact. Rest of the physical exam is non contributory - Assessment and Plan (1) Congestive heart failure Current Visit: Yes Status: Chronic Assessment and Plan: Chest is cleared to auscultation. Patient laying down in bed flat. TTE: VEF 50%. Normal LV chamber size and function. Mild asymmetric hypertrophy of the basal septum. Indeterminate diastolic function. Atypical septal motion consistent with post-operative status. Normal right ventricular size. Mild right ventricular hypokinesis. Aortic valve not well visualized. Grossly, calcified aortic valve leaflets. Mild aortic stenosis. Mean gradient 10 mmHg. Mild pulmonary hypertension. Plan: Will continue IV duiresis with furosemide 40mg/IV BID for 24 more hours Patient 2.4 Litter balance negative on this admission Continue with daily weight and fluid restriction to 1.5 litters a day On metoprolol 12.5mg/PO daily (2) Atrial fibrillation Current Visit: Yes Status: Chronic Assessment and Plan: Rate controlled. Patient on Metoprolol 12.5mg/PO daily. Continue Amiodarone 200mg/PO daily. On full dose lovenox due to High CHADSVASC score. (3) Weakness Current Visit: Yes Status: Chronic Assessment and Plan: PT evaluated. Patient does not need further PT needs. (4) CAD (coronary artery disease) Current Visit: Yes Status: Acute Assessment and Plan: Continue Aspirin and atorvastatin. DVT Prophylaxis: On full dose anticoagulation due to A.Fib. - Summary of Assessment and Plan Summary of Assessment and Plan: Patient admitted to the hospital due to Acute HFpEF exacerbation. On IV diuresis. Patient to remain in the hospital to receive IV diuresis for at least 24 more hours. - Time Spent with Patient Total time spent is greater than 50% in coordination of care (as documented) at patient's floor/unit and/or counseling patient: 25 - 35 minutes Plan of Care Discussed with: patient (the nurse.) Internal Medicine: Result - Labs CBC & Chem 7: 12/06/17 03:06 12/07/17 03:50 Labs: BMP 12/07/17 03:50 Sodium 144 Potassium 3.3 L Chloride 103 Carbon Dioxide 33 H BUN 13 Creatinine 1.06 Glucose 93 Calcium 8.4 L - ABG Interpretation ABG results: PT/INR, D-dimer PT 11.8 Seconds (9.4-12.1) 12/05/17 12:22 D-Dimer 852 ng/mLFEU (0-500) H 12/05/17 17:06 Consult Discharge Plan - Plan Referrals: Howard Nuno DO [Primary Care Provider] - (1) Congestive heart failure Qualifiers: Heart failure type: diastolic Heart failure chronicity: acute on chronic Qualified Code(s): I50.33 - Acute on chronic diastolic (congestive) heart failure (2) Atrial fibrillation Qualifiers: Atrial fibrillation type: paroxysmal Qualified Code(s): I48.0 - Paroxysmal atrial fibrillation (4) CAD (coronary artery disease) Qualifiers: Coronary Disease-Associated Artery/Lesion type: unspecified vessel or lesion type [place] vs. transplanted heart: unspecified whether [place] or transplanted heart Associated angina: angina presence unspecified Qualified Code(s): I25.10 - Atherosclerotic heart disease of [place] coronary artery without angina pectoris
[2017-12-08] MEDS: *HR* Enoxaparin 100 MG/ML SYRINGE SQ SCH (06:31)
[2017-12-08 07:09] VITALS: BP 144/100
[2017-12-08] MEDS: Furosemide 40 MG/4 ML VIAL IVP SCH (08:00)
[2017-12-08] MEDS: Aspirin Enteric Coated 81 MG Tablet PO SCH (08:04)
[2017-12-08] MEDS: Metoprolol XL (24 HR) Succ 25 MG TAB.ER.24H PO SCH (08:04)
[2017-12-08] MEDS: *HR* Amiodarone 200 MG TABLET PO SCH (08:04)
[2017-12-08] MEDS ORDERED: Furosemide 20 MG TABLET PO SCH (09:00)
--- NOTE | 2017-12-08 09:22 | Discharge Summary ---
- NOTES TO OUTPATIENT PROVIDER Notes to Outpatient Provider: Follow-up with her primary care within a week hospital discharge. As you will be on a diuretic follow up BMP as per your PCP discretion. Orders not resulted at time of discharge: Pending orders 12/08/17 09:00 BMP [Basic Metabolic Panel] Routine Magnesium Routine 12/08/17 09:01 Phosphorous Routine Date of Encounter: 12/08/17 Time of Encounter: 09:20 - Discharge Diagnosis (1) Congestive heart failure Priority: Primary Status: Resolved Assessment and Plan: Total balance negative 4 litters. Qualifiers: Heart failure type: diastolic Heart failure chronicity: acute on chronic Qualified Code(s): I50.33 - Acute on chronic diastolic (congestive) heart failure (2) Atrial fibrillation Priority: Secondary Status: Chronic Assessment and Plan: Patient not on full dose anticoagulation in the outpatient settings due to falls. Also patient refused being on an oral anticoagulant for the same concern. Qualifiers: Atrial fibrillation type: paroxysmal Qualified Code(s): I48.0 - Paroxysmal atrial fibrillation (3) Weakness Priority: Secondary Status: Chronic Assessment and Plan: Pt evaluated the patient. recommended no PT services. (4) CAD (coronary artery disease) Priority: Secondary Status: Chronic Qualifiers: Coronary Disease-Associated Artery/Lesion type: unspecified vessel or lesion type [place] vs. transplanted heart: unspecified whether [place] or transplanted heart Associated angina: angina presence unspecified Qualified Code(s): I25.10 - Atherosclerotic heart disease of [place] coronary artery without angina pectoris Hospital course: Mr. Bales is a 82 year old male past medical history significant for hypertension, HFpEF,and coronary artery bypass grafting 2001. Patient was sent to the emergency room from his primary care physician's office where he went due to generalized weakness associated with swelling of his lower extremities for the past 2 months. Patient admitted for Acute HFpEF exacerbation, started on IV diuresis. 4 litters of fluids removed. Doppler of the lower extremities done to r/o DVT as right lower extr symmetrically bigger than the left: negative for DVT. Discussed with patient regarding anticoagulation due A.Fib. Patient refused being on an Oral anticoagulant due to concerned of falls and bleeding. Patient hemodynamically stable to be discharged home, no shortness of breath, laying flat in bed. Recommended to follow up with his PCP and to make and appointment with a senior wealth advisor within a month. - Time Spent with Patient Total time spent providing and/or coordinating discharge services: Less than 30 minutes - Discharge Medications Prescriptions: Furosemide [Lasix] 40 mg PO DAILY 30 Days #30 tablet Potassium Chloride 10 meq PO DAILY 30 Days #30 tab.er.prt Home Medications: Amiodarone [Cordarone] 200 mg PO DAILY 07/01/15 [History] Terazosin [Hytrin] 5 mg PO DAILY 11/25/17 [History] Aspirin Enteric Coated [Aspirin EC] 81 mg PO DAILY 12/05/17 [History] Atorvastatin [Lipitor] 40 mg PO HS 12/05/17 [History] Metoprolol Succinate [Toprol Xl] 50 mg PO DAILY 12/05/17 [History] Nitroglycerin [Nitrostat] 1 tab PO Q5MIN PRN 12/05/17 [History] Furosemide [Lasix] 40 mg PO DAILY 30 Days #30 tablet 12/08/17 [Rx] Potassium Chloride 10 meq PO DAILY 30 Days #30 tab.er.prt 12/08/17 [Rx] Allergies/Adverse Reactions: 3 Allergy/AdvReac Type Severity Reaction Status Date / Time No Known Allergies Allergy Verified 07/26/17 12:16 Date of admission: 12/05/17 15:52 Primary care physician: Feliciano Nuno DO Consults: 12/05/17 17:46 Consult to Physical Medicine/Rehab [CONS] Routine Consulting Provider: Cornelia Doyle Reason for Consult: Weakness. Hx of falls. Call Completed: No 12/06/17 08:07 Consult to Physical Therapy [CONS] Routine Comment: Evaluate, develop and implement POC Reason for Consult: eval for poss ecf, will need pre-cert Does patient have active BEDREST order?: No Is patient medically & hemodynamically stable?: Yes - Constitutional Vitals: Temp Pulse Resp BP Pulse Ox 97.8 F 84 18 144/100 96 12/08/17 07:06 12/08/17 07:06 12/08/17 07:06 12/08/17 07:06 12/08/17 07:06 Exam: General: Alert and oriented x4. In no acute distress. Cardiovascular: RRR, Normal S1 & S2, no rubs, murmurs or gallops. JVD about 6cm. Lungs: Clear breath sounds to auscultation bilaterally, no wheezes or crackles. Abdomen: Obese, Soft, non-tender, no rigidity. NABS in all 4 quadrants Extremities: +1 pitting edema in the lower extr, R>L. Strength 5/5 in the upper and lower extr. Neurological: Normal cognition. CN II-XII intact. Rest of the physical exam is non contributory - Patient Status Disposition: Home, Self-Care Condition: Good Functional capacity at discharge: independent ambulation Overall status at discharge: patient is back to baseline - Discharge Instructions Instructions: Heart Failure (DC), Atrial Fibrillation (DC), Fluid Restriction ( DC) Follow Up With: Howard Nuno DO [Primary Care Provider] - 12/19/17 9:30 am (Follow-up as scheduled. ) - Diet and Activity Activity: resume usual activities as tolerated Diet: low salt diet
[2017-12-08 10:07] LABS: BUN/Creatinine Ratio 12 (6-26); Blood Urea Nitrogen 13 mg/dL (8-23); Carbon Dioxide 34 mEq/L (23-29); Chloride 102 mEq/L (98-107); Glucose 174 mg/dL (70-105); Osmolality,Calculated 302 (280-300); Potassium 3.7 mEq/L (3.5-5.1); Sodium 144 mEq/L (136-145); eGFR For Non-African Americans > 60 (> 60)
== END 2017-12-08 11:20 | disposition home or self-care (01) ==
LOC: EMEROOARM 11:42 → 2ANU 11:42 → SUATTDRO 15:52 → 2ANU 16:34
PROVIDERS: ADMIT Internal Medicine; ATTEND Internal Medicine